=== PATIENT | female | born 1985 | race American Indian/Alaskan Native ===

== ENCOUNTER 2017-11-08 23:59 | Emergency (ER) | payer OTHER ==
[~2017-11-08] VITALS: Ht 165.1 cm; Wt 61.2 kg
[~2017-11-08 23:59] MED LIST: ARIP10; Bactrim Ds Tab1 EACH PO; CEPH500 PO; DOXY100 PO; ESCI10; IBUP800 PO; METR500 PO; MIRT30 PO; Naprosyn500 MG PO; OXYACE5T PO; PHENA100 PO; PROBIOTIC1 EACH PO; Percocet 5-3251 EACH PO; SULTRISS PO
== END 2017-11-09 02:50 | disposition left against medical advice (07) ==
LOC: ER 23:59
DX: Z53.21 Procedure and treatment not carried out due to patient leaving prior to being seen by health care provider (principal); S89.92XA Unspecified injury of left lower leg, initial encounter; X58.XXXA Exposure to other specified factors, initial encounter

== ENCOUNTER 2017-11-11 20:06 | Emergency (ER) | payer OTHER ==
[~2017-11-11] VITALS: Ht 165.1 cm; Wt 61.2 kg
== END 2017-11-11 22:40 | disposition home or self-care (01) ==
LOC: ER 20:06
DX: S09.90XA Unspecified injury of head, initial encounter (principal); S20.211A Contusion of right front wall of thorax, initial encounter; S50.11XA Contusion of right forearm, initial encounter; S80.11XA Contusion of right lower leg, initial encounter; F17.210 Nicotine dependence, cigarettes, uncomplicated; V47.5XXA Car driver injured in collision with fixed or stationary object in traffic accident, initial encounter
CPT/HCPCS: 70450; 71046; 72125; 73090; 73590; 99284

== ENCOUNTER 2018-03-30 10:12 | Emergency (ER) | payer OTHER ==
[~2018-03-30] VITALS: Ht 165.1 cm; Wt 59.0 kg
[2018-03-30] MEDS ORDERED: MIRT30 PO (10:19)
[2018-03-30] MEDS ORDERED: IBUP600 PO (10:42)
[2018-03-30] MEDS ORDERED: Norco 5-325 Ta1 EACH PO (10:42)
== END 2018-03-30 10:53 | disposition home or self-care (01) ==
LOC: ER 10:12
DX: S42.021A Displaced fracture of shaft of right clavicle, initial encounter for closed fracture (principal); F43.10 Post-traumatic stress disorder, unspecified; F17.210 Nicotine dependence, cigarettes, uncomplicated; Z79.899 Other long term (current) drug therapy; V19.9XXA Pedal cyclist (driver) (passenger) injured in unspecified traffic accident, initial encounter
CPT/HCPCS: 73030; 99283-25

== ENCOUNTER 2018-03-31 03:44 | Emergency (ER) | payer OTHER ==
[~2018-03-31] VITALS: Ht 165.1 cm; Wt 59.0 kg
[~2018-03-31 03:44] MED LIST changes: +IBUP600 PO; +Norco 5-325 Ta1 EACH PO
== END 2018-03-31 06:40 | disposition home or self-care (01) ==
LOC: ER 03:44
DX: S42.021A Displaced fracture of shaft of right clavicle, initial encounter for closed fracture (principal); Z79.899 Other long term (current) drug therapy; W01.0XXA Fall on same level from slipping, tripping and stumbling without subsequent striking against object, initial encounter
CPT/HCPCS: 29105; 99283-25

== ENCOUNTER 2018-04-01 06:18 | Emergency (ER) | payer OTHER ==
[~2018-04-01] VITALS: Ht 160 cm; Wt 59.0 kg
== END 2018-04-01 08:12 | disposition home or self-care (01) ==
LOC: ER 06:18
DX: S42.001D Fracture of unspecified part of right clavicle, subsequent encounter for fracture with routine healing (principal); V29.9XXD Motorcycle rider (driver) (passenger) injured in unspecified traffic accident, subsequent encounter; Z79.899 Other long term (current) drug therapy; F43.10 Post-traumatic stress disorder, unspecified; F17.210 Nicotine dependence, cigarettes, uncomplicated
CPT/HCPCS: 99283

== ENCOUNTER 2018-04-02 19:07 | Emergency (ER) | payer OTHER ==
[~2018-04-02] VITALS: Ht 154.9 cm; Wt 59.0 kg
== END 2018-04-02 22:25 | disposition home or self-care (01) ==
LOC: ER 19:07
DX: S09.90XA Unspecified injury of head, initial encounter (principal); S16.1XXA Strain of muscle, fascia and tendon at neck level, initial encounter; S42.001A Fracture of unspecified part of right clavicle, initial encounter for closed fracture; F15.10 Other stimulant abuse, uncomplicated; V29.9XXA Motorcycle rider (driver) (passenger) injured in unspecified traffic accident, initial encounter; Z29.9 Encounter for prophylactic measures, unspecified; F17.200 Nicotine dependence, unspecified, uncomplicated; Z79.899 Other long term (current) drug therapy
CPT/HCPCS: 29105; 70450; 72125; 99284-25

== ENCOUNTER 2018-04-04 16:37 | Emergency (ER) | payer OTHER | END 2018-04-04 16:40 | disposition left against medical advice (07) | LOC: ER 16:37 | DX: Z53.21 Procedure and treatment not carried out due to patient leaving prior to being seen by health care provider (principal) ==

== ENCOUNTER 2019-03-31 16:34 | Emergency (ER) | payer OTHER ==
[~2019-03-31] VITALS: Ht 165.1 cm; Wt 47.6 kg
[2019-03-31] MEDS ORDERED: CEPH500 PO (17:20)
[2019-03-31] MEDS ORDERED: NAPR550 PO (17:20)
== END 2019-03-31 17:31 | disposition home or self-care (01) ==
LOC: ER 16:34
DX: S90.561A Insect bite (nonvenomous), right ankle, initial encounter (principal); L03.115 Cellulitis of right lower limb; W57.XXXA Bitten or stung by nonvenomous insect and other nonvenomous arthropods, initial encounter; Z79.899 Other long term (current) drug therapy; F43.10 Post-traumatic stress disorder, unspecified; F17.210 Nicotine dependence, cigarettes, uncomplicated
CPT/HCPCS: 99282

== ENCOUNTER 2021-07-29 02:17 | Emergency (ER) | payer OTHER ==
[~2021-07-29] VITALS: Ht 165.1 cm; Wt 63.5 kg
[~2021-07-29 02:17] MED LIST changes: +NAPR550 PO
[2021-07-29] MEDS ORDERED: Benadryl 50 mg50 MG PO (02:32)
[2021-07-29] MEDS ORDERED: PRED10 PO (02:32)
== END 2021-07-29 02:58 | disposition home or self-care (01) ==
LOC: ER 02:17
DX: L25.9 Unspecified contact dermatitis, unspecified cause (principal); F17.200 Nicotine dependence, unspecified, uncomplicated
CPT/HCPCS: 99283; A9270; J1100

== ENCOUNTER 2022-04-06 20:04 | Emergency (ER) | payer OTHER ==
[~2022-04-06] VITALS: Ht 165.1 cm; Wt 63.5 kg
[~2022-04-06 20:04] MED LIST changes: +Benadryl 50 mg50 MG PO; +PRED10 PO
[2022-04-07 00:01] LABS: Source, Urine Clean Catch
[2022-04-07 00:05] LABS: Bilirubin, Urine Neg (Neg); Blood, Urine 5+ (Neg); Glucose Qualitative, Urine Neg (Neg); Ketones, Urine 2+ (Neg); Leukocyte Esterase, Urine Neg (Neg); Nitrite, Urine Neg (Neg); Protein, Urine 4+ (Neg); Specific Gravity, Urine 1.015 (1.003-1.022); Urobilinogen, Urine NORM (Normal)
[2022-04-07 00:17] LABS: Appearance, Urine Turbid (Clear); Color, Urine Red (P-Yellow)
[2022-04-07 00:18] LABS: Bacteria Few /hpf; Red Blood Cells, Urine TNTC /hpf (0-2); Squamous Epithelial Cells Not Seen /hpf (Few)
[2022-04-07 00:51] LABS: BASOPHILS ABSOLUTE AUTO 0.03 K/mm3 (0.00-0.23); BASOPHILS PERCENT AUTO 0 % (0-2); EOSINOPHILS ABSOLUTE AUTO 0.26 K/mm3 (0.00-0.68); EOSINOPHILS PERCENT AUTO 3 % (0-6); Hematocrit 34.5 % (33.0-51.0); IMMATURE GRAN ABSOLUTE AUTO 0.02 K/mm3 (0.00-0.10); IMMATURE GRAN PERCENT AUTO 0 % (0-1); LYMPHOCYTES ABSOLUTE AUTO 2.74 K/mm3 (0.84-5.20); LYMPHOCYTES PERCENT AUTO 29 % (21-46); MONOCYTES ABSOLUTE AUTO 0.63 K/mm3 (0.16-1.47); MONOCYTES PERCENT AUTO 7 % (4-13); Mean Corpuscular HGB 28.4 pg (26.0-34.0); Mean Corpuscular HGB Conc 31.9 g/dL (31.5-36.5); Mean Corpuscular Volume 89 fL (80-100); Mean Platelet Volume 9.8 fL (9.1-12.4); NEUTROPHILS PERCENT AUTO 61 % (41-73); Platelet Count 352 K/mm3 (150-400); RDW Coefficient Variation 12.8 % (11.7-14.2); RDW Standard Deviation 41.6 fL (35.1-46.3); Red Blood Cell Count 3.88 M/mm3 (3.80-5.20); White Blood Cell Count 9.38 K/mm3 (4.00-11.30)
[2022-04-07 01:10] LABS: Albumin, Blood 3.3 g/dL (3.4-5.0); Albumin/Globulin Ratio 0.8 (0.8-1.8); Bilirubin, Total 0.4 mg/dL (0.1-1.0); Bun/Creatinine Ratio 14.7 (12.0-20.0); Creatinine, Blood 0.61 mg/dL (0.40-1.00); Globulin, Blood 4.3 g/dL (2.2-4.0); Potassium, Blood 3.7 mmol/L (3.5-5.5); Total Protein, Blood 7.6 g/dL (6.4-8.2)
== END 2022-04-07 02:46 | disposition home or self-care (01) ==
LOC: ER 20:04
PROVIDERS: Student in an Organized Health Care Education/Training Program
DX: N93.9 Abnormal uterine and vaginal bleeding, unspecified (principal); R10.32 Left lower quadrant pain; R10.2 Pelvic and perineal pain; F17.210 Nicotine dependence, cigarettes, uncomplicated
CPT/HCPCS: 76830; 76856; 80053; 81001; 84702; 84703; 85025; 86850; 86900; 86901; 87086; 99284-25; A9270

== ENCOUNTER 2025-07-12 03:55 | Emergency (ER) | payer OTHER ==
[~2025-07-12] VITALS: Ht 165.1 cm; Wt 63.5 kg
[2025-07-12 04:12] VITALS: BP 118/79
[2025-07-12] MEDS ORDERED: PRED20 PO (04:26)
== END 2025-07-12 05:11 | disposition home or self-care (01) ==
LOC: ER 03:55
DX: L23.7 Allergic contact dermatitis due to plants, except food (principal); F17.210 Nicotine dependence, cigarettes, uncomplicated; Z79.52 Long term (current) use of systemic steroids
CPT/HCPCS: 99283; A9270; J7512